=== PATIENT | male | born 1990 | race Two or more races ===

== ENCOUNTER 2023-09-07 23:46 | Emergency (ER) | payer OTHER ==
[~2023-09-07] VITALS: Ht 180.3 cm; Wt 99.8 kg
[2023-09-08] MEDS ORDERED: CEFTRIAXONE SODIUM 1,000 MG VIAL IM STA (00:55)
[2023-09-08] MEDS ORDERED: TETANUS & DIPHTHERIA TOX,ADULT 0.5 ML VIAL IM STA (00:55)
[2023-09-08] MEDS ORDERED: INTESTINEX680 M1 PO (01:32)
[2023-09-08] MEDS ORDERED: DICLOFENAC POTA50 MG PO (01:32)
[2023-09-08] MEDS ORDERED: AMOX-CLAV 875-1 EACH PO (01:32)
== END 2023-09-08 02:02 | disposition home or self-care (01) ==
LOC: ER 23:47
DX: S61.412A Laceration without foreign body of left hand, initial encounter (principal); W26.0XXA Contact with knife, initial encounter; Y93.89 Activity, other specified; Y92.89 Other specified places as the place of occurrence of the external cause; Y99.8 Other external cause status